=== PATIENT | female | born 1980 | race Caucasian/White ===

== ENCOUNTER 2016-05-02 14:12 | Emergency (ER) ==
[2016-05-02 14:16] VITALS: BP 146/78; TEMP 99.3; BMI 36.9
[2016-05-02] MEDS ORDERED: LIDOCAINE 1 % AMP 5 ML (SUTURES) SUBCUT STA (14:29)
--- NOTE | 2016-05-02 14:29 | ED.PDOC ---
General ED Provider: Dr. GASTON FLETCHER JR Chief Complaint: Hand Laceration Stated Complaint: patient states she cut left hand while cutting an avacodo. [ End ]45 MINUTES AGO 99.3 83 16 97% 146/78 08/27 Time Seen by Physician: 14:26 Mode of Arrival: Walk-In Information Source: Patient Exam Limitations: No limitations [facility] Nursing and Triage Documentation Reviewed and Agree: No Review of Systems - Review Of Systems Constitutional: Reports: No symptoms Eyes: Reports: No symptoms Ears, Nose, Mouth, Throat: Reports: No symptoms Respiratory: Reports: No symptoms Cardiac: Reports: No symptoms GI: Reports: No symptoms : Reports: No symptoms Musculoskeletal: Reports: No symptoms Skin: Reports: Lesions (lac left srcond mcp 5mm deep no tendon nor bone at base) Neurological: Reports: No symptoms Endocrine: Reports: No symptoms Hematologic/Lymphatic: Reports: No symptoms All Other Systems: Other Past Medical History - Past Medical History Endocrine: Reports: None Cardiovascular: Reports: None Respiratory: Reports: None Hematological: Reports: None Gastrointestinal: Reports: None Genitourinary: Reports: None Neuro/Psych: Reports: Anxiety, Depression Musculoskeletal: Reports: None Cancer: Reports: None Last Menstrual Period: 04/17/16 - Surgical History General Surgical History: Reports: (X2) - Family History Family History: Reports: Unknown - Social History Smoking Status: Never smoker Hx Substance Use: No Alcohol Screening: Occasionally - Immunizations Tetanus Shot up to Date: No (unsure) Physical Exam - Physical Exam Appearance: Well-appearing, Obese Pain Distress: Mild Respiratory: Airway patent Procedures - Laceration/Wound Repair No standard instances Wound Description: Linear Wound Length (cm): 1 Wound Width: 0.5 Wound Depth: 0.5cm Wound Explored: Clean Wound Irrigated: Yes Wound Prep: Saline, Hibiclens Anesthesia: Lidocaine Suture Size and Type: 4-0 Number of Sutures: 3 Critical Care Note - Critical Care Note Total Time (mins): 0 Course - Course Orders, Labs, Meds: Orders Category Date Time Status Lidocaine HCl/Pf [Lidocaine 1 % Amp 5 ml (Sutures)] MEDS 05/02/16 14:29 Discontinued 5 ml SUBCUT ONCE STA Medications Discontinued Medications Generic Name Dose Route Start Last Admin Trade Name Freq PRN Reason Stop Dose Admin Lidocaine HCl 5 ml 05/02/16 14:29 Lidocaine 1 % Amp 5 Ml (Sutures) SUBCUT 05/02/16 14:30 ONCE STA Vital Signs: Temp Pulse Resp BP Pulse Ox 05/02/16 14:12 99.3 F 83 16 146/78 H 97 Departure - Departure Time of Disposition: 14:51 Disposition: HOME SELF-CARE Discharge Problem: Laceration of hand Instructions: Laceration (ED), Care For Your Stitches (ED) Condition: Good Pt referred to PMD for follow-up: Yes Additional Instructions: clean and dry for three days daily bandage change sutures out in 7 days return if red swollen increased pain or drainage or fever over 101.0 Allergies/Adverse Reactions: Allergies No Known Allergies Allergy (Unverified 05/02/16 14:16) Home Medications: Ambulatory Orders 1 [No Reported Medications] 05/02/16
== END 2016-05-02 15:09 | disposition home or self-care (01) ==
LOC: ED 14:12
DX: S61.412A Laceration without foreign body of left hand, initial encounter (principal); W26.0XXA Contact with knife, initial encounter
CPT/HCPCS: 99283

== ENCOUNTER 2018-10-07 21:04 | Emergency (ER) ==
[2018-10-07 21:18] VITALS: BP 128/91; TEMP 98.8; BMI 37.2
[2018-10-07] MEDS ORDERED: LIDOCAINE HCL 1% SDV SUBCUT STA (21:24)
[2018-10-07] MEDS ORDERED: TENIVAC IM ONE ×2 (21:29→21:36)
--- NOTE | 2018-10-07 21:41 | ED.PDOC ---
General ED Provider: Dr. DASIA ANDRES-ER Chief Complaint: Toe Laceration Stated Complaint: picture frame fell and struck the toe Time Seen by Physician: 21:00 Mode of Arrival: Wheelchair Information Source: Patient, Family Exam Limitations: No limitations Primary Care Provider: GUS CALLAHAN Nursing and Triage Documentation Reviewed and Agree: Yes Does patient meet sepsis criteria?: No System Inflammatory Response Syndrome: Not Applicable Sepsis Protocol: For patient's 13 years and over: Temp is 96.8 and below OR 101 and greater Pulse >90 BPM Resp >20/minute Acutely Altered Mental Status Are patient's symptoms suggestive of a new infection, such as: -Pneumonia -Skin, Soft Tissue -Endocarditis -UTI -Bone, Joint Infection -Implantable Device -Acute Abdominal Infection -Wound Infection -Meningitis -Blood Stream Catheter Infection -Unknown Skin Complaint Exam - Laceration/Lower Ext. Complaint/Exam Location of Injury: Left, Toe #1 Mechanism of Injury: Laceration Symptoms Are: Still present Initial Severity: Mild Current Severity: Mild Aggravating: Movement Alleviating: Compression Associated Signs and Symptoms: Denies: Fever, Chills, Erythema, Numbness, Tingling Differential Diagnoses: Laceration Review of Systems - Review Of Systems Constitutional: Reports: No symptoms Eyes: Reports: No symptoms Ears, Nose, Mouth, Throat: Reports: No symptoms Respiratory: Reports: No symptoms Cardiac: Reports: No symptoms GI: Reports: No symptoms : Reports: No symptoms Musculoskeletal: Reports: No symptoms Skin: Reports: No symptoms Neurological: Reports: No symptoms Endocrine: Reports: No symptoms Hematologic/Lymphatic: Reports: No symptoms All Other Systems: Reviewed and Negative Past Medical History - Past Medical History Previously Healthy: No Endocrine: Reports: None Cardiovascular: Reports: None Respiratory: Reports: None Hematological: Reports: None Gastrointestinal: Reports: None Genitourinary: Reports: None Neuro/Psych: Reports: Anxiety, Depression Musculoskeletal: Reports: None Cancer: Reports: None Last Menstrual Period: 2 WEEKS AGO - Surgical History General Surgical History: Reports: (X2) - Family History Family History: Reports: Unknown - Social History Smoking Status: Never smoker Hx Substance Use: No Alcohol Screening: Occasionally - Immunizations Tetanus Shot up to Date: No (UNSURE) Physical Exam - Physical Exam Appearance: Well-appearing, No pain distress, Well-nourished Eyes: LEONIDAS, EOMI, Conjunctiva clear ENT: Ears normal, Nose normal, Oropharynx normal Neck: Supple Respiratory: Airway patent, Breath sounds clear, Breath sounds equal, Respirations nonlabored Cardiovascular: RRR, Pulses normal, No rub, No murmur GI/: Soft, Nontender, No masses, Bowel sounds normal, No Organomegaly Musculoskeletal: Normal strength, ROM intact, No edema, No calf tenderness Skin: Warm, Dry, Normal color Neurological: Sensation intact, Motor intact, Reflexes intact, Cranial nerves intact, Alert, Oriented Psychiatric: Affect appropriate, Mood appropriate Interpretation - Radiology Interpretation Radiology Interpretation By: ED Physician Radiology Results: Negative Procedures - Laceration/Wound Repair No standard instances Wound Description: Linear Wound Length (cm): 1 cm top of left great toe Wound Explored: Clean Wound Irrigated: Yes Wound Prep: Hibiclens Wound Repaired With: Steri-strips, Dermabond Layer Closure?: No Sterile Dressing Applied?: Yes Splint Applied?: No Sling Applied?: No Critical Care Note - Critical Care Note Total Time (mins): 0 Course - Course Orders, Labs, Meds: Orders Category Date Time Status Lidocaine HCl/Pf [Lidocaine HCl 1% Sdv] MEDS 10/07/18 21:24 Discontinued 5 ml SUBCUT ONCE STA Tetanus and Diphtheria Tox/Pf [Tenivac] MEDS 10/07/18 21:29 Discontinued 0.5 ml IM .ONCE ONE Tetanus and Diphtheria Tox/Pf [Tenivac] MEDS 10/07/18 21:36 Discontinued 0.5 ml IM .STK-MED ONE TOE(S), LEFT MIN 2V Stat RADS 10/07/18 21:23 Taken Medications Discontinued Medications Generic Name Dose Route Start Last Admin Trade Name Chrisq PRN Reason Stop Dose Admin Lidocaine HCl 5 ml 10/07/18 21:24 Lidocaine Hcl 1% Sdv SUBCUT 10/07/18 21:25 ONCE STA Tetanus/Diphtheria Toxoids Adsorbed 0.5 ml 10/07/18 21:29 10/07/18 21:42 Tenivac IM 10/07/18 21:30 0.5 ml .ONCE ONE Administration Vital Signs: Temp Pulse Resp BP Pulse Ox 10/07/18 21:05 98.8 F 87 20 128/91 H 98 Departure - Departure Time of Disposition: 21:45 Disposition: HOME SELF-CARE Discharge Problem: Laceration of toe Qualifiers: Encounter type: initial encounter Toe: great toe Damage to nail status: without damage Foreign body presence: without foreign body Laterality: left Qualified Code(s): S91.112A - Laceration without foreign body of left great toe without damage to nail, initial encounter Instructions: Laceration (ED), Skin Adhesive Care (ED) Condition: Good Pt referred to PMD for follow-up: Yes IPMP verified?: No Additional Instructions: f/u prn Allergies/Adverse Reactions: Allergies No Known Allergies Allergy (Verified 10/07/18 21:17) Home Medications: Ambulatory Orders 1 [No Reported Medications] 10/07/18 Disposition Discussed With: Patient, Family
--- NOTE | 2018-10-07 21:45 | DI ---
EXAM: Left toes three views CLINICAL HISTORY: Left great toe pain FINDINGS: No acute fractures or dislocations are seen. Surrounding soft tissues are normal. IMPRESSION: Negative left toes
== END 2018-10-07 22:00 | disposition home or self-care (01) ==
LOC: ED 21:04
DX: S91.112A Laceration without foreign body of left great toe without damage to nail, initial encounter (principal); W22.8XXA Striking against or struck by other objects, initial encounter
CPT/HCPCS: 90471; 90714; 96372; 99282